=== PATIENT | female | born 1935 | race Caucasian/White ===

== ENCOUNTER → 2017-08-30 | Day surgery (SDC) | payer MEDICARE, BC ==
[~2017-08-30] MED LIST: AMLO5TAB22 PO; ASPI81 PO; CALCTAB80 PO; CHEL50TA PO; FUROSEMIDE 20 MG/2 ML VIAL ONE; GENTAMICIN SULFATE 80 MG/2 ML VIAL ONE; GLUC500C56 PO; LUTE10TA PO; MIDAZOLAM HCL 2 MG/2 ML VIAL ONE; OMEG5CAP PO; ONDANSETRON HCL 4 MG/2 ML VIAL IV PUSH ONE; PRIN20TA2 PO; PROPOFOL 200 MG/20 ML AMP IV ONE; SODIUM CHLOR 0.9% 1000 ML BAG IV ONE; SODIUM CHLORIDE 0.9% 100 ML MINIBAG IV ONE; TAB-TAB PO; VITA200017 PO; VITA400C70 PO; VITA500T10 PO
--- NOTE | 2017-08-30 11:29 | TN ---
cc: LARRY CAST M.D. DATE OF SURGERY: 08/30/2017 PREOPERATIVE DIAGNOSIS Left ureterovesical junction calculus (ICD-10 code N20.1). POSTOPERATIVE DIAGNOSIS Left ureterovesical junction calculus (ICD-10 code N20.1). PROCEDURE Cystourethroscopy with left ureteroscopic holmium laser lithotripsy and stone basket manipulation (CPT code 50632). INDICATIONS Ms. Basurto is an 82-year-old woman who has failed a trial of medical expulsive therapy and spontaneous passage of a 7 mm left ureteral stone who presents now for definitive treatment after being intermittently symptomatic. The findings are normal urethra. The ureteral orifice on the right is normal size, shape and position, effluxing clear urine. On the left there is some bulging consistent with a distal stone, otherwise normal size, shape and position. The remainder of the bladder is unremarkable. There is no trabeculation, diverticula or cellules. No tumors or stones identified. The ureteroscopy on the left ureter shows an approximately 7 mm escalante oval-shaped stone with significant ectasia of the collecting system proximal to the stone at about the ureterovesical junction. DETAILS OF PROCEDURE The procedure as well as the risks and benefits were explained to the patient. Informed consent was obtained. The patient was taken to the major operative theatre where she was placed in supine position. The patient was identified as well as the operative site. A universal timeout was performed in standard fashion. At this time general anesthetic and prophylactic intravenous antibiotic consisting of gentamicin 80 mg was administered. After adequate anesthetic she was placed in the low dorsal lithotomy position and prepped and draped in the usual sterile fashion. At this time a 22.5 Beninese obturator and sheath were placed into the bladder. The obturator was removed and with a 30-degree lens cystoscope the bladder was systematically surveyed. Attention was directed to the left ureteral orifice where with the help of an open-ended catheter a 0.035 inch hybrid guidewire was placed under direct vision into the ureteral orifice and fluoroscopically up the ureter and into the renal pelvis. A second 0.035 inch Bentson wire was also placed as a working wire, again under fluoroscopic guidance. The safety wire was attached to the drape. The working wire was back loaded onto a semi-rigid mini ureteroscope which was then placed under direct vision. Upon entering into the distal ureter the stone was identified. Photo documentation was obtained. Using a 365 micron holmium laser fiber at a setting of 8 joules and frequency of 8 Hz, laser lithotripsy was performed until the stone was broken into three pieces. Then using a Zero Tip nitinol basket the three fragments were basketed and dropped into the bladder. A final pass of the scope all the way up the ureter as far as the scope would allow showed no evidence of any damage or significant bleeding. The decision was made not to leave a ureteral stent. At this time the ureteroscope was removed and the cystoscope was placed back into the bladder. The stone fragments were evacuated out and sent for crystallographic analysis. Attention at the left ureteral orifice showed some mildly hematuric efflux of urine confirming that no stent needed to be placed. The bladder was then decompressed and the cystoscope removed. The patient tolerated the procedure well, emerged from anesthetic without difficulty and was transferred to the recovery room in stable condition to be discharged home when criteria is met. There were no obvious complications. MD IRENA Gregory/LISA /10:55 AM /11:02 AM
== END | disposition home or self-care (01) ==
LOC: ESDC 08:00
PROVIDERS: ATTEND Urology
DX: N20.1 Calculus of ureter (principal)
CPT/HCPCS: 00918; 52353; 76000; C1769; J1580; J2250; J2405; J3010; J7030; J1940